=== PATIENT | male | born 1980 | race Caucasian/White ===

== ENCOUNTER 2016-10-07 09:09 | Emergency (ER) | payer SELFPAY ==
[2016-10-07] MEDS ORDERED: ASPIRIN 81 MG PO STA (09:24)
--- NOTE | 2016-10-07 09:27 | ED ---
Chest Pain HPI - General Chief Complaint: Chest Pain Stated Complaint: LEFT SIDE LUNG PAIN Time Seen by Provider: 10/07/16 09:19 Source: patient, RN notes reviewed Mode of arrival: ambulatory Limitations: no limitations - History of Present Illness Initial Comments: 36-year-old male presents emergency Department chief complaint left-sided chest pain 4 days. Patient states the pain is over his left chest wall and sometimes is radiate up or to his back. He did state that when he laughs, takes a deep inspiration or certain movements to increase his symptoms. Patient denies any fever, chills or any cold-like symptoms. Patient is concerned that she's had a prior pneumothorax and multiple pneumonias secondary to being on Remicade. Patient states pulses lung issues have been on the right. Patient states she's had no cardiac disease in the past denies any family history of cardiac disease he does have a history of high blood pressure no cholesterol issues and is a nonsmoker. Patient has no nausea vomiting, diarrhea, constipation no diaphoretic episodes. Patient has no exertional shortness of breath and no shortness breath or rest at this time. - Related Data Home Medications Medication Instructions Recorded Confirmed Losartan Potassium [Cozaar] 25 mg PO HS 10/07/16 10/07/16 Allergies Allergy/AdvReac Type Severity Reaction Status Date / Time No Known Allergies Allergy Verified 10/07/16 09:15 Review of Systems ROS Statement: Those systems with pertinent positive or pertinent negative responses have been documented in the HPI. ROS Other: All systems not noted in ROS Statement are negative. EKG Findings - EKG Comments: EKG Findings:: EKG performed at 9:29 normal sinus rhythm with a rate of 79 AR interval 132 QRS duration 94 QT/QTC 364/[address] elevation or depression. Past Medical History Past Medical History: Hypertension, Pneumonia Additional Past Medical History / Comment(s): chrons disease. Pneumothorax on the right History of Any Multi-Drug Resistant Organisms: None Reported Past Surgical History: Bowel Resection, Cholecystectomy, Hernia Repair Past Psychological History: No Psychological Hx Reported Smoking Status: Never smoker Past Alcohol Use History: None Reported Past Drug Use History: None Reported General Exam Limitations: no limitations General appearance: alert, in no apparent distress Head exam: Present: atraumatic, normocephalic, normal inspection Neck exam: Present: normal inspection, full ROM. Absent: tenderness, meningismus, lymphadenopathy Respiratory exam: Present: normal lung sounds bilaterally, chest wall tenderness (Mild left anterior). Absent: respiratory distress, wheezes, rales, rhonchi, stridor Cardiovascular Exam: Present: regular rate, normal rhythm, normal heart sounds. Absent: systolic murmur, diastolic murmur, rubs, gallop, clicks GI/Abdominal exam: Present: soft, normal bowel sounds. Absent: distended, tenderness, guarding, rebound, rigid Back exam: Absent: CVA tenderness (R), CVA tenderness (L) Neurological exam: Present: alert, oriented X3, CN II-XII intact Skin exam: Present: warm, dry, intact, normal color. Absent: rash Course Vital Signs 10/07/16 10/07/16 09:11 10:15 Temperature 97.3 F L Pulse Rate 84 79 Respiratory 20 17 Rate Blood Pressure 133/86 141/95 O2 Sat by Pulse 100 99 Oximetry Chest Pain MDM - MDM This a 36-year-old male presented for left sided chest pain for 4 days. Patient 's EKG, lab work, chest x-ray all within normal limits. Patient's pain is reproducible. Patient symptoms are worse with movement left shoulder. Patient has symptoms consistent with respiratory distress or chest wall pain. Patient will be discharged advised take ibuprofen return parameters were discussed. Disposition Clinical Impression: Chest wall pain Disposition: HOME SELF-CARE Condition: Stable Instructions: Chest Wall Pain (ED) Additional Instructions: Please return to the Emergency Department if symptoms worsen or any other concerns. Referrals: Nonstaff,Physician [Primary Care Provider] - 1-2 days Time of Disposition: 11:18
[2016-10-07 09:46] LABS: Basophils % (A) 0 %; CH 31.2; CHCM 35.7; Eosinophils # (A) 0.1 k/uL (0-0.7); Eosinophils % (A) 2 %; HCT 43.8 % (39.0-53.0); HDW 2.62; HGB 15.6 gm/dL (13.0-17.5); Luc # (Auto) 0.12; Luc % (Auto) 2; Lymphocytes # (A) 1.4 k/uL (1.0-4.8); Lymphocytes % (A) 17 %; MCH 31.3 pg (25.0-35.0); MCHC 35.7 g/dL (31.0-37.0); MCV 87.9 fL (80.0-100.0); Mean Platelet Volume 6.6; Monocytes # (A) 0.5 k/uL (0-1.0); Monocytes % (A) 6 %; Neutrophils # (A) 5.8 k/uL (1.3-7.7); Neutrophils % (A) 73 %; RBC 4.99 m/uL (4.30-5.90); RDW 12.2 % (11.5-15.5); WBC 7.9 k/uL (3.8-10.6); WBC (Perox) 7.64
--- NOTE | 2016-10-07 09:59 | XR ---
EXAMINATION TYPE: XR chest 2V DATE OF EXAM: 10/07/2016 HISTORY: Chest Pain. REFERENCE: NONE. FINDINGS: The lungs are clear. Pleural space are clear. The heart is not enlarged. IMPRESSION: NO ACUTE INTRATHORACIC ABNORMALITY.
[2016-10-07 10:00] LABS: INR 1.1 (<1.2); Partial Thromboplastin Time 24.7 sec (22.0-30.0); Prothrombin Time 10.7 sec (9.0-12.0)
[2016-10-07 10:05] LABS: ALT 22 U/L (21-72); AST 21 U/L (17-59); Alkaline Phosphatase 81 U/L (38-126); Anion Gap 12 mmol/L; Blood Urea Nitrogen 13 mg/dL (9-20); Calcium 9.5 mg/dL (8.4-10.2); Carbon Dioxide 22 mmol/L (22-30); Chloride 105 mmol/L (98-107); Glucose 100 mg/dL (74-99); Magnesium 1.8 mg/dL (1.6-2.3); Non-African American GFR(MDRD) >60 (>60 ml/min/1.73 sqM); Sodium 139 mmol/L (137-145); Total Bilirubin 1.2 mg/dL (0.2-1.3); Total Protein 7.3 g/dL (6.3-8.2)
[2016-10-07 10:06] LABS: Potassium 4.3 mmol/L (3.5-5.1)
[2016-10-07 10:09] LABS: Creatine Kinase 34 U/L (55-170)
[2016-10-07 10:22] LABS: Creatine Kinase MB <0.2 ng/mL (0.0-2.4); Troponin I <0.012 ng/mL (0.000-0.034)
[2016-10-07 11:34] VITALS: BP 135/91; PULSE 78; RESP 20; TEMP 98
== END 2016-10-07 11:34 | disposition home or self-care (01) ==
LOC: EC 09:09
DX: R07.89 Other chest pain (principal); I10 Essential (primary) hypertension; Z79.899 Other long term (current) drug therapy
CPT/HCPCS: 36415; 71020; 80053; 82550; 82553; 83690; 83735; 84484; 85025; 85379; 85610; 85730; 93005; 99285

== ENCOUNTER 2018-11-23 16:44 | Emergency (ER) | payer OTHER ==
[2018-11-23 16:48] VITALS: BP 139/89; PULSE 84; RESP 20; TEMP 97.4
--- NOTE | 2018-11-23 17:03 | ED ---
Back Pain HPI - General Chief Complaint: Back Pain/Injury Stated Complaint: Lower back pain Time Seen by Provider: 11/23/18 16:49 Source: patient Limitations: no limitations - History of Present Illness Initial Comments: Patient is a 38-year-old male presenting with complaints of left low back pain that started yesterday evening. Patient states approximately 3 days ago he was lifting a bunch of heavy boxes and then yesterday evening started developing left low back pain. Patient states he is having trouble twisting and getting in and out of his car. Patient denies any previous histories of back surgeries as well as no trauma or injuries to his low back. Patient has a history of Crohn's. No other pertinent past medical history. Patient denies fever, chills, numbness and tingling to extremities, bladder or bowel incontinence, nausea, vomiting, urinary complaints. Patient has no other complaints at this time. Upon arrival to ER, vital signs are stable. - Related Data Home Medications Medication Instructions Recorded Confirmed Famotidine [Pepcid] 20 mg PO DAILY 10/07/16 10/07/16 Fluticasone Nasal [place] [Flonase 1 - 2 sprays EA NOSTRIL DAILY PRN 10/07/16 10/07/16 Nasal [place]] Losartan Potassium [Cozaar] 25 mg PO HS 10/07/16 10/07/16 Allergies Allergy/AdvReac Type Severity Reaction Status Date / Time No Known Allergies Allergy Verified 11/23/18 16:47 Review of Systems ROS Statement: Those systems with pertinent positive or pertinent negative responses have been documented in the HPI. ROS Other: All systems not noted in ROS Statement are negative. Past Medical History Past Medical History: Hypertension, Pneumonia Additional Past Medical History / Comment(s): chrons disease. Pneumothorax on the right History of Any Multi-Drug Resistant Organisms: None Reported Past Surgical History: Bowel Resection, Cholecystectomy, Hernia Repair Past Psychological History: No Psychological Hx Reported Smoking Status: Never smoker Past Alcohol Use History: Occasional Past Drug Use History: None Reported General Exam - General Exam Comments Initial Comments: GENERAL: Well-appearing, well-nourished and in no acute distress. HEAD: Atraumatic, normocephalic. EYES: Pupils equal round and reactive to light, extraocular movements intact, sclera anicteric, conjunctiva are normal. ENT: TMs normal, nares patent, oropharynx clear without exudates. Moist mucous membranes. NECK: Normal range of motion, supple without lymphadenopathy or JVD. LUNGS: Breath sounds clear to auscultation bilaterally and equal. No wheezes rales or rhonchi. HEART: Regular rate and rhythm without murmurs, rubs or gallops. ABDOMEN: Soft, nontender, normoactive bowel sounds. No guarding, no rebound. No masses appreciated. : Deferred EXTREMITIES: Normal range of motion, no pitting or edema. No clubbing or cyanosis. Pain with trunk flexion as well as trunk rotation. Mild pain with palpation of the left lumbar paraspinals. 5 out of 5 upper and lower extremity strength. Sensation is equal and bilateral. NEUROLOGICAL: Cranial nerves II through XII grossly intact. Normal speech, normal gait. PSYCH: Normal mood, normal affect. SKIN: Warm, Dry, normal turgor, no rashes or lesions noted. Limitations: no limitations Course Vital Signs 11/23/18 16:45 Temperature 97.4 F L Pulse Rate 84 Respiratory 20 Rate Blood Pressure 139/89 O2 Sat by Pulse 99 Oximetry Medical Decision Making - Medical Decision Making Patient is a 38-year-old male presenting with left low back pain that started yesterday. Patient was moving heavy boxes approximately 3 days ago and then developed this pain yesterday. Patient denies any fever, chills, nausea, vomiting, urinary complaints, numbness and tingling into the extremities. Vital signs are stable. There are no red flag symptoms. On exam patient has mild tenderness to the left paraspinals as well as pain with trunk flexion and rotation. It was discussed with patient this is likely a lumbar strain. Patient was offered muscle relaxer but was declined. Patient will use heat and/or ice to the area as well as gentle stretching. Return parameters were discussed with the patient he verbalizes understanding. Patient is stable for discharge at this time. Disposition Clinical Impression: Strain of lumbar region Disposition: HOME SELF-CARE Condition: Stable Instructions (If sedation given, give patient instructions): Acute Low Back Pain (ED) Additional Instructions: Please return to the Emergency Department if symptoms worsen or any other concerns. Use heat to the area as well as NSAIDs. Follow up with PCP if symptoms persist. Is patient prescribed a controlled substance at d/c from ED?: No Referrals: Geovani Fried MD [Primary Care Provider] - 1-2 days
== END 2018-11-23 17:17 | disposition home or self-care (01) ==
LOC: EC 16:44
DX: S39.012A Strain of muscle, fascia and tendon of lower back, initial encounter (principal); I10 Essential (primary) hypertension; Z79.899 Other long term (current) drug therapy; Z87.19 Personal history of other diseases of the digestive system; X58.XXXA Exposure to other specified factors, initial encounter; Y93.89 Activity, other specified
CPT/HCPCS: 99283

== ENCOUNTER → 2020-05-10 | Outpatient (CLI) | payer OTHER ==
--- NOTE | 2020-05-11 14:21 | CT ---
EXAMINATION TYPE: CT Enterography DATE OF EXAM: 05/10/2020 COMPARISON: None. HISTORY: CROHNS DISEASE, history of bowel resection and hernia repair surgery. CT DLP: 1826 mGycm, Automated Exposure Control for Dose Reduction was Utilized. CONTRAST: CT scan of the abdomen and pelvis is performed with oral volumen and without and with IV Contrast, pa tient injected with 100 mL of Isovue 370. CT angiogram urography protocol. FINDINGS: BOWEL: Satisfactory fluid distention of stomach without suspicious eccentric wall thickening or enhan cement. Suboptimal fluid-filled distention of small bowel loops. No suspicious eccentric enhancing wa ll thickening or positive engorgement. There is postsurgical change to small bowel loops in the right midabdomen deep aspect. There is surgical change at level of cecum with suspected neoterminal ileum. Roughly 2 to 3 cm of the neoterminal ileum appears within normal limits. Just proximal to this there is approximately 5.0 cm segment of poor distention and moderate concentric wall thickening in the ri ght lower quadrant/upper pelvis. (For reference coronal image 31 series 9 and sagittal image 84 serie s 11) Mild fluid prominent distal ileal loop proximal to this is seen. There is symmetric mucosal enh ancement of this loop without suspicious asymmetric enhancement or nodularity or increased vasa engor gement. Low grade short segment stricture is suspected. Some fluid-filled prominence of the sigmoid r ectal colon is present. No suspicious mural enhancement or eccentric wall thickening in the visualize d colon. Focal mild to moderate wall thickening in the proximal sigmoid colon is present with symmetr ic mild mucosal enhancement, no asymmetric enhancement. No adjacent fat stranding. No fistula formati on noted. LUNG BASES: No significant abnormality is appreciated. LIVER/GB: Cholecystectomy clips. PANCREAS: No significant abnormality is seen. SPLEEN: No significant abnormality is seen. ADRENALS: No significant abnormality is seen. KIDNEYS: No renal calculi on the noncontrast images. No concerning solid or cystic renal mass or hyd ronephrosis seen bilaterally. Accessory right renal artery incidentally noted. PROSTATE/SEMINAL VESICLES: Upper limits of normal in size somewhat prominent for patient's age. LYMPH NODES: No greater than 1cm abdominal or pelvic lymph nodes are appreciated. OSSEOUS STRUCTURES: Slight scoliotic curvature. Nonspecific chondroid lesion left proximal femur inte rtrochanteric level axial image 126 series 7 favored nonaggressive in etiology. OTHER: No significant additional abnormality is seen. IMPRESSION: Postsurgical change present as detailed above. Evidence of chronic inflammatory change di stal ileum and proximal sigmoid colon. No acute or active enteritis identified currently.
== END | disposition home or self-care (01) ==
LOC: RADCTMAIN 11:39
PROVIDERS: ATTEND Internal Medicine Gastroenterology
DX: K52.9 Noninfective gastroenteritis and colitis, unspecified (principal); K50.819 Crohn's disease of both small and large intestine with unspecified complications; G89.29 Other chronic pain; Z90.49 Acquired absence of other specified parts of digestive tract
CPT/HCPCS: 74178; Q9967

== ENCOUNTER 2021-01-25 08:15 | Day surgery (SDC) | payer OTHER ==
[2021-01-21 14:11] VITALS: BMI 24.4
[~2021-01-25 08:15] MED LIST: LACTATED RINGERS 1,000 ML IV SCH; LIDOCAINE 1% (10MG/ML) FOR IV START INTRADERMA PRN
[2021-01-25 08:34] VITALS: RESP 16
[2021-01-25] MEDS ORDERED: fentaNYL (PF) 50 MCG/ML 2 ML AMP ONE (09:40)
[2021-01-25] MEDS ORDERED: MIDAZOLAM 2 MG/2 ML VIAL ONE (09:40)
[2021-01-25] MEDS ORDERED: PROPOFOL 10 MG/ML 20 ML VIAL IV ONE (09:40)
[2021-01-25] MEDS ORDERED: KETAMINE 10 MG/ML 20 ML VIAL ONE (09:40)
[2021-01-25 10:02] VITALS: PULSE 86
--- NOTE | 2021-01-25 10:16 | P.PCN ---
Date of Procedure: 01/25/21 Procedure(s) Performed: BRIEF HISTORY: Patient is a 40-year-old pleasant white male scheduled for an elective colonoscopy as a part of evaluation of history of Crohn's disease that was diagnosed in 2000. He status post terminal ileal resection at the time of diagnosis. Subsequenthe was on Remicade infusions in 1999 2003 and he stopped it because of recurrent pneumonia. Lately has been having lower abdominal pain and diarrhea with bowel movements anywhere from 4-10 a day which are loose to watery in consistency and hence he scheduled for colonoscopy to evaluate further. PROCEDURE PERFORMED: Colonoscopy with biopsy. PREOPERATIVE DIAGNOSIS: History of Crohn's disease. IV sedation per Anesthesia. PROCEDURE: After informed consent was obtained, the patient, was brought into the endoscopy unit. IV sedation was administered by Anesthesia under continuous monitoring. Digital rectal examination was normal. Initially the Olympus CF-160 flexible video colonoscope was then inserted in the rectum, gradually advanced into the ascending colon, appeared the ileocolic anastomosis was visualized and appeared patent but there was circumferential erythema with erosions at the anastomosis and biopsies were done from this area. The scope was advanced into the distal ileumm. There are scattered erosions or ulcerations noted in the distal ileum with mild narrowing and multiple biopsies were done from this area. The cause of the transverse colon, descending colon, sigmoid colon, and rectum appeared normal. Retroflexion was performed in the rectum and no lesions were seen. The patient tolerated the procedure well. IMPRESSION: Patent ileocolic anastomosis was erosions consistent with recurrent Crohn's disease Distal ileal erosions and ulceration consistent with Crohn's ileitis RECOMMENDATIONS: Findings of this examination were discussed with the patient as well as his family. He was advised to follow with the biopsy results. He'll be seen in office in 2 weeks and will consider starting on Biologics for active Crohn's disease. In the meantime will give him a trial of Entocort 3 tablets daily to be tapered by one tablet every month..
[2021-01-25 10:25] VITALS: BP 165/98
== END 2021-01-25 10:58 | disposition home or self-care (01) ==
LOC: ORWHC2ENDO 08:15
PROVIDERS: ATTEND Internal Medicine Gastroenterology
DX: K51.00 Ulcerative (chronic) pancolitis without complications (principal); K51.90 Ulcerative colitis, unspecified, without complications; K50.90 Crohn's disease, unspecified, without complications; K21.9 Gastro-esophageal reflux disease without esophagitis; I10 Essential (primary) hypertension; Z98.890 Other specified postprocedural states; F41.0 Panic disorder [episodic paroxysmal anxiety]
CPT/HCPCS: 88305; 45380; J2250; J3010; J2704

== ENCOUNTER 2023-06-06 09:42 | Day surgery (SDC) | payer OTHER ==
[2023-06-06] MEDS: LACTATED RINGERS 1,000 ML IV SCH (11:27)
[2023-06-06] MEDS: LIDOCAINE 1% (10MG/ML) FOR IV START INTRADERMA PRN (11:28)
[2023-06-06 11:55] VITALS: TEMP 98.4
[2023-06-06] MEDS ORDERED: PROPOFOL 10 MG/ML 20 ML VIAL IV ONE (12:16)
--- NOTE | 2023-06-06 12:29 | P.PCN ---
Date of Procedure: 06/06/23 Procedure(s) Performed: BRIEF HISTORY: Patient is a 42-year-old pleasant white male scheduled for an elective colonoscopy as a part of evaluation of prior history of Crohn's ileitis diagnosed in 2000. Status post TI resection at the time of diagnosis.he has been having 7-8 loose bowel movements daily but no blood or mucus in the stool. She denies any associated abdominal pain. PROCEDURE PERFORMED: Colonoscopy with biopsy. PREOPERATIVE DIAGNOSIS: History of Crohn's disease. IV sedation per Anesthesia. PROCEDURE: After informed consent was obtained, the patient, was brought into the endoscopy unit. IV sedation was administered by Anesthesia under continuous monitoring. Digital rectal examination was normal. Initially the Olympus CF-160 flexible video colonoscope was then inserted in the rectum, gradually advanced into the RIGHT COLON WITH THE ILEOCOLONIC ANASTOMOSIS WAS VISUALIZED. tHERE WAS NARROWING OF THE ANASTOMOSIS AT MULTIPLE EROSIONS CONSISTENT WITH RECURRENT cROHN'S DISEASE AND BIOPSIES WERE DONE FROM THIS AREA. Mucosa of the transverse colon, descending colon, sigmoid colon, and rectum appeared normal. Retroflexion was performed in the rectum and large internal hemorrhoids were seen. The patient tolerated the procedure well. IMPRESSION: Ileocolic anastomotic stricture with erosions or ulcerations consistent with recurrent Crohn's disease Large internal hemorrhoids Colon appeared normal. RECOMMENDATIONS: Findings of this examination were discussed with the patient as well as his family. He was advised to follow with the biopsy results. He'll be seen in office in 2-3 weeks.
[2023-06-06 13:13] VITALS: BP 145/83; PULSE 85; RESP 16
== END 2023-06-06 13:11 | disposition home or self-care (01) ==
LOC: ORWHC2ENDO 09:42
PROVIDERS: ATTEND Internal Medicine Gastroenterology
DX: K64.8 Other hemorrhoids (principal); K50.00 Crohn's disease of small intestine without complications; I10 Essential (primary) hypertension; F12.90 Cannabis use, unspecified, uncomplicated; Z79.899 Other long term (current) drug therapy; Z98.890 Other specified postprocedural states; Z90.49 Acquired absence of other specified parts of digestive tract
CPT/HCPCS: 88305; 45380; J2704